=== PATIENT | female | born 1965 | race Caucasian/White ===

== ENCOUNTER 2019-07-02 02:07 | Inpatient (IN) | payer OTHER, MEDICAID ==
[~2019-07-02] VITALS: Ht 160 cm; Wt 107.3 kg
[~2019-07-02 02:07] MED LIST: ATORVASTATIN CA40 M1 PO; COLACE100 MG PO; FERROUS SULFAT325 M2 PO; FORTAMET500 M1 PO; GLU5 PO; GLU850 PO; GRALISE600 MG PO; PAX20 PO; PRI20 PO; XANAX2 MG PO; ZANAFLEX CAPSULE4 MG PO; ZES5 PO
[2019-07-02 02:51] LABS: BASOPHIL % 0.7 % (0-2); PLATELET COUNT 321 x10^3mcL (130-400); RED CELL DISTRIBUTION WIDTH 19.9 % (11.5-14.5)
[2019-07-02 02:59] LABS: CARBON DIOXIDE 28.3 mmol/L (21-32); CREATININE SERUM 1.5 mg/dL (0.6-1.0); POTASSIUM SERUM 3.7 mmol/L (3.5-5.1)
[2019-07-02 03:07] LABS: ALBUMIN 3.1 g/dL (3.4-5.0); BILIRUBIN TOTAL 0.1 mg/dL (0.20-1.00)
[2019-07-02 03:29] LABS: microscopic required? NO
[2019-07-02 03:59] LABS: urine erythrocyte NEGATIVE (NEGATIVE)
[2019-07-02 08:19] VITALS: Ht 160 cm; Wt 107.3 kg
[2019-07-02 08:35] VITALS: BP 146/64
[2019-07-02 10:47] LABS: FREE T4 1.16 ng/dL (0.76-1.46); FREE THYROXINE INDEX 2.4 ug/dL (1.4-4.5); T4(THYROXINE) 6.6 ug/dL (4.7-13.3)
[2019-07-02 10:55] LABS: T3 TOTAL 1.07 ng/mL
[2019-07-02 11:36] VITALS: BP 149/78
[2019-07-02 15:42] VITALS: BP 150/66
[2019-07-02 19:26] VITALS: BP 166/77
[2019-07-03 05:15] VITALS: BP 136/66
[2019-07-03 07:53] LABS: BASOPHIL % 0.5 % (0-2); PLATELET COUNT 261 x10^3mcL (130-400)
[2019-07-03 07:54] LABS: RED CELL DISTRIBUTION WIDTH 20.7 % (11.5-14.5)
[2019-07-03 08:00] LABS: CALCIUM 8.5 mg/dL (8.5-10.1); CARBON DIOXIDE 26.9 mmol/L (21-32); CREATININE SERUM 1.2 mg/dL (0.6-1.0); MAGNESIUM 1.7 mg/dL (1.8-2.4); PHOSPHOROUS 4.8 mg/dL (2.5-4.9); POTASSIUM SERUM 3.6 mmol/L (3.5-5.1)
[2019-07-03 08:38] VITALS: BP 141/75
[2019-07-03 09:47] LABS: rbc morphology (normal/abnorm) ABNORMAL (NORMAL)
[2019-07-03 12:39] VITALS: BP 133/66
[2019-07-03 16:40] VITALS: BP 148/79
[2019-07-03 23:31] VITALS: BP 175/74
[2019-07-04 06:08] VITALS: BP 145/73
[2019-07-04 06:51] LABS: BASOPHIL % 0.5 % (0-2); PLATELET COUNT 268 x10^3mcL (130-400)
[2019-07-04 07:06] LABS: RED CELL DISTRIBUTION WIDTH 20.6 % (11.5-14.5)
[2019-07-04 07:13] LABS: CALCIUM 8.6 mg/dL (8.5-10.1); CARBON DIOXIDE 29.5 mmol/L (21-32); CHLORIDE SERUM 106 mmol/L (98-107); GFR1 > 60 mL/min; GLUCOSE SERUM 132 mg/dL (74-106); MAGNESIUM 1.7 mg/dL (1.8-2.4); POTASSIUM SERUM 3.9 mmol/L (3.5-5.1); SODIUM SERUM 141 mmol/L (136-145)
[2019-07-04 08:41] VITALS: BP 175/86
[2019-07-04 09:30] LABS: rbc morphology (normal/abnorm) ABNORMAL (NORMAL)
[2019-07-04 11:48] VITALS: BP 169/64
[2019-07-04 13:40] VITALS: BP 169/64
== END 2019-07-04 15:55 | disposition home or self-care (01) | DRG 73 ==
LOC: ED 02:07 → DU 03:41 → MU 03:41 → DU 10:03 → MU 07-03 14:06
PROVIDERS: Emergency Medicine; Internal Medicine; ADMIT Family Medicine
DX: G90.8 Other disorders of autonomic nervous system (principal); N17.0 Acute kidney failure with tubular necrosis; E44.1 Mild protein-calorie malnutrition; Z68.41 Body mass index [BMI] 40.0-44.9, adult; A08.4 Viral intestinal infection, unspecified; E78.5 Hyperlipidemia, unspecified; D63.8 Anemia in other chronic diseases classified elsewhere; F41.9 Anxiety disorder, unspecified; E11.40 Type 2 diabetes mellitus with diabetic neuropathy, unspecified; E66.01 Morbid (severe) obesity due to excess calories; D50.9 Iron deficiency anemia, unspecified; E11.65 Type 2 diabetes mellitus with hyperglycemia; I10 Essential (primary) hypertension; Z86.73 Personal history of transient ischemic attack (TIA), and cerebral infarction without residual deficits; I25.2 Old myocardial infarction; Z90.49 Acquired absence of other specified parts of digestive tract; Z79.899 Other long term (current) drug therapy
CPT/HCPCS: 82962; 83880; 84439; 87046; 87046-59; C9113; G0378; J1885; J2270; J2916; J7030; J7120; Q0092; Q9967

== ENCOUNTER 2019-08-10 21:02 | Emergency (ER) | payer OTHER, MEDICAID, SELFPAY ==
[~2019-08-10] VITALS: Ht 160 cm; Wt 104.3 kg
[2019-08-10 21:31] VITALS: Ht 160 cm; Wt 104.3 kg
[2019-08-10 23:24] VITALS: BP 162/82
== END 2019-08-10 23:24 | disposition home or self-care (01) ==
LOC: ED 21:02
DX: Z20.828 Contact with and (suspected) exposure to other viral communicable diseases (principal); R50.9 Fever, unspecified; M79.10 Myalgia, unspecified site; I10 Essential (primary) hypertension; J45.909 Unspecified asthma, uncomplicated
CPT/HCPCS: 82962; Q0092; U0003-CS